=== PATIENT | female | born 1930 | race Caucasian/White ===

== ENCOUNTER 2017-01-30 12:17 | Emergency (ER) | payer MEDICARE, BC ==
[~2017-01-30 12:17] MED LIST: ACETAMINOPHEN325 M2 PO; AMLODIPINE BESYL5 MG PO; ASPIRIN325 M3 PO; BUTALBIT-ACETA1 EAC1 PO; COSOPT EYE DROP10 ML EACH EYE; ESTRADIOL0.5 M2 PO; LEVOTHYROXINE125 MC1 PO
[2017-01-30] MEDS ORDERED: CARVEDILOL3.125 M1 PO (12:35)
[2017-01-30 13:20] LABS: BASO % 0.3 % (0-2); EOS % 0.9 % (0-7); EOSINOPHIL ABSOLUTE COUNT 0.1 tho/cmm (0.0-0.7); IMMATURE GRANULOCYTES ABSOLUTE 0.03 tho/cmm (0-0.03); IMMATURE GRANULOCYTES PERCENT 0.3 % (0-0.3); LYMPH % 25.6 % (20-45); LYMPH ABSOLUTE COUNT 2.7 tho/cmm (0.8-4.5); MCH (MEAN CORPUSCULAR HGB) 30.7 pg (28.0-32.0); MCHC MEAN CORPUSCULAR HGB CONC 33.3 % (32.0-36.0); MEAN PLATELET VOLUME 9.4 cmc (9.4-12.4); MONO % 6.6 % (0-12); MONOCYTE ABSOLUTE COUNT 0.7 tho/cmm (0.0-1.2); NEUTROPHIL ABSOLUTE COUNT 6.9 tho/cmm (1.6-8.0); NEUTROPHIL-AUTOMATED 6.9 tho/cmm (1.6-8.0); NEUTROPHILS % 66.3 % (40-80); PLATELET COUNT 287 tho/cmm (150-450); RED BLOOD COUNT 3.26 mil/cmm (4.00-5.20); RED CELL DISTRIBUTION WIDTH 14.4 % (12.4-16.4); WHITE BLOOD COUNT 10.4 tho/cmm (4.0-10.0)
[2017-01-30 13:41] LABS: ANION GAP 13 mmol/L (0-20); BLOOD UREA NITROGEN 18 mg/dl (6-24); CALCIUM 8.7 mg/dl (8.5-10.5); CARBON DIOXIDE-VENOUS 24 mmol/L (22-32); CHLORIDE 105 mmol/l (96-110); CREATININE 0.92 mg/dl (0.50-1.10); GLUCOSE 94 mg/dL (70-110); POTASSIUM 4.1 mmol/L (3.7-5.1); SODIUM 138 mmol/L (135-145); eGFR VALUE FOR BLACK 66 mL/Min
[2017-01-30] MEDS ORDERED: PROAIR HFA8.5 GM INH (14:45)
[2017-01-30] MEDS ORDERED: LEVAQUIN750 M1 PO (14:45)
[2017-01-30] MEDS ORDERED: ZOFRAN ODT4 MG PO (14:45)
== END 2017-01-30 15:09 ==
LOC: EDMED 12:17
PROVIDERS: Emergency Medicine
DX: J18.1 Lobar pneumonia, unspecified organism (principal); E03.9 Hypothyroidism, unspecified; Z86.73 Personal history of transient ischemic attack (TIA), and cerebral infarction without residual deficits; Z79.82 Long term (current) use of aspirin; Z79.890 Hormone replacement therapy; Z79.899 Other long term (current) drug therapy